=== PATIENT | female | born 1980 | race Caucasian/White ===

== ENCOUNTER 2018-04-05 11:20 | Emergency (ER) | payer OTHER ==
[~2018-04-05] VITALS: Ht 167.6 cm; Wt 51.3 kg
[2018-04-05 11:53] VITALS: BP 118/84
[2018-04-05] MEDS ORDERED: bacitracin 15gm ointment TP ONE (12:55)
[2018-04-05] MEDS ORDERED: LIDOcaine 1.5% w/epinephrine 1:200,000 5ml ampul IJ ONE (12:55)
[2018-04-05] MEDS ORDERED: TETanus/Pertussis (Acell)/Diphther VAC/PF (Tdap-Adult) 0.5ml syringe IM ONE (12:55)
== END 2018-04-05 14:20 | disposition home or self-care (01) ==
LOC: ER 11:21
DX: S81.812A Laceration without foreign body, left lower leg, initial encounter (principal); S81.811A Laceration without foreign body, right lower leg, initial encounter; W45.8XXA Other foreign body or object entering through skin, initial encounter; Y93.43 Activity, gymnastics; Y92.39 Other specified sports and athletic area as the place of occurrence of the external cause; Y99.9 Unspecified external cause status
CPT/HCPCS: 12004; 90471; 90715; 99284; A6255; J3490